=== PATIENT | female | born 1970 | race Caucasian/White ===

== ENCOUNTER 2016-04-02 09:43 | Emergency (ER) | payer OTHER ==
[~2016-04-02] VITALS: Ht 160 cm; Wt 96.1 kg
[~2016-04-02 09:43] MED LIST: GABA600T PO; LISI2.5T3 PO; METH40TA9 PO; NEUR600T PO
[2016-04-02 09:48] VITALS: BP 154/99; PULSE 86; RESP 18; TEMP 98.4; O2SAT 97
--- NOTE | 2016-04-02 10:06 | PD ---
HPI Chief Complaint: Musculoskeletal Complaint Time Seen by Provider: 09:59 Travel History International Travel<30 days: No Contact w/Intl Traveler<30days: No Traveled to known affect area: No History of Present Illness HPI The patient was seen and examined in the presence of the nurse. This patient complains of left knee pain. 6 days ago she tripped and fell and landed on it. She is ambulatory but has pain when walking. There is some bruising there. Severity of symptoms is mild to moderate. No alleviating factors PFSH Past Medical History Hx Anticoagulant Therapy: No Arthritis: Yes (RHEUMATOID ) Bipolar Disorder: Yes Cardiovascular Problems: Yes (HTN) Chemotherapy: No Cerebrovascular Accident: Yes (TIA 2009) Diabetes: No Diminished Hearing: No Gastrointestinal Disorders: Yes GERD: Yes Herniated Disk: Yes Hypertension: Yes Musculoskeletal: Yes (CHRONIC BACK PAIN) Neurologic: Yes Respiratory: No Immunizations Current: Yes Seizures: Yes Ulcer: Yes (GASTRIC) ?: Not LMP: 2001 - PARTIAL HYSTO : 3 Para: 3 Tubal Ligation: Yes Past Surgical History Hysterectomy: Yes Social History Alcohol Use: No Tobacco Use: Yes (1 ppd) Substance Use: No Allergies-Medications (Allergen,Severity, Reaction): Coded Allergies: Celebrex (Verified Allergy, Severe, INCREASED HEART RATE, 04/02/16) Codeine (Verified Allergy, Severe, CAN'T URINATE, 04/02/16) Nonsteroidal Anti-Inflammatory Agts (Verified Allergy, Severe, GI BLEEDS, 04/02/16) Reported Meds & Prescriptions Reported Meds & Active Scripts Active Reported Gabapentin 600 Mg Tab 600 Mg PO 5 TIMES A DAY Lisinopril-Hctz 20-12.5 Mg Tab 1 Tab PO DAILY Methadone (Methadone HCl) 10 Mg Tab 170 Mg PO DAILY Review of Systems General / Constitutional: No: Fever HENT: No: Headaches Cardiovascular: No: Chest Pain or Discomfort Physical Exam Narrative SKIN: Inspection shows no rash or ulcers. Palpation shows no induration or nodules. Psych: Normal mood and affect. Normal insight and judgment. Left knee: Old ecchymosis over the patella. Mild tenderness there decent range of motion. No obvious instability Data Data Last Documented VS Vital Signs Date Time Temp Pulse Resp B/P Pulse Ox O2 Delivery O2 Flow Rate FiO2 04/02/16 09:48 98.4 86 18 154/99 97 Orders Knee, Complete (4vws) (1/14/17 ) [facility] Medical Decision Making Medical Screen Exam Complete: Yes Emergency Medical Condition: Yes Medical Record Reviewed: Yes Differential Diagnosis Contusion, soft tissue injury, fracture Narrative Course I have reviewed the patient's electronic medical record. I reviewed her left knee x-rays which show effusion but no fracture or dislocation Supportive care discussed including limit weightbearing and ice and elevate and use crutches if it's painful to bear weight. Recommend orthopedic follow-up as she reports no improvement in a week She has been walking on it for the last week Recommend she get a neoprene sleeve for added stability Patient has chronic back pain and takes pain medicine through pain clinic so I' m not writing additional pain medicine now Diagnosis Primary Impression: Soft tissue injury of left knee Additional Instructions: The patient was advised to follow up with orthopedist. Ice and elevate and limit weightbearing Use a neoprene sleeve on the left knee Use crutches if it's painful to bear weight Med/Other Pt SpecificInfo: Other Disposition: 01 DISCHARGE HOME Condition: Stable Brodie Rosales MD Apr 02, 2016 10:06
[2016-04-02] MEDS ORDERED: GABA600T PO (10:07)
[2016-04-02] MEDS ORDERED: METH10TA PO (10:07)
[2016-04-02] MEDS ORDERED: LISI20TA PO (10:07)
--- NOTE | 2016-04-02 10:38 | RADHPO ---
EXAM DATE/TIME: 04/02/2016 10:14 [facility] COMPARISON: No previous studies available for comparison. INDICATIONS : Fell, has left knee pain MEDICAL HISTORY : None. SURGICAL HISTORY : None. ENCOUNTER: Initial ACUITY: 1 week PAIN SCORE: 5/10 LOCATION: Left knee FINDINGS: Four view examination of the left knee demonstrates no evidence of fracture or dislocation. Moderate joint effusion. Bony mineralization is normal. The articular surfaces are intact. The suprapatell ar soft tissues have a normal configuration. CONCLUSION: Unremarkable examination of the left knee except for moderate joint effusion. Kosta Reid MD on April 02, 2016 at 10:36 Board Certified Radiologist. This report was verified electronically.
== END 2016-04-02 10:51 | disposition home or self-care (01) ==
LOC: PHED 09:43
DX: S89.92XA Unspecified injury of left lower leg, initial encounter (principal); M06.9 Rheumatoid arthritis, unspecified; I10 Essential (primary) hypertension; Z86.73 Personal history of transient ischemic attack (TIA), and cerebral infarction without residual deficits; F17.210 Nicotine dependence, cigarettes, uncomplicated; M54.9 Dorsalgia, unspecified; W01.0XXA Fall on same level from slipping, tripping and stumbling without subsequent striking against object, initial encounter; Y93.9 Activity, unspecified; Y92.9 Unspecified place or not applicable; Y99.9 Unspecified external cause status
CPT/HCPCS: 73564; 99283

== ENCOUNTER 2017-08-15 14:35 | Emergency (ER) | payer SELFPAY ==
[~2017-08-15] VITALS: Ht 160 cm; Wt 80.0 kg
[~2017-08-15 14:35] MED LIST changes: -LISI2.5T3 PO; +LISI20TA PO; +METH10TA PO; -METH40TA9 PO; -NEUR600T PO
[2017-08-15 14:41] VITALS: BP 146/88; PULSE 117; RESP 18; TEMP 98.5; O2SAT 97
[2017-08-15] MEDS ORDERED: METHADONE PO (14:49)
[2017-08-15] MEDS ORDERED: cloNIDine HCL 0.1 MG/24 HR PATCH T-DERMAL ONE (15:00)
[2017-08-15] MEDS ORDERED: SODIUM CHLORIDE 0.9% FLUSH 10 ML FLUSH IVF PRN (15:00)
[2017-08-15] MEDS ORDERED: ONDANSETRON ODT 4 MG TAB PO ONE (15:00)
[2017-08-15 15:40] VITALS: BP 149/88; PULSE 96; RESP 16; O2SAT 97
[2017-08-15 15:56] LABS: AUTOMATED NEUTROPHIL # 5.4 TH/MM3 (1.8-7.7); BASOPHIL % 0.5 % (0.0-2.0); EOSINOPHIL # 0.1 TH/MM3 (0-0.4); EOSINOPHIL % 1.3 % (0.0-4.0); LYMPH % 21.6 % (9.0-44.0); LYMPHOCYTE # 1.6 TH/MM3 (1.0-4.8); MEAN CELL VOLUME 86.5 FL (80.0-100.0); MEAN CORPUSCULAR HEMOGLOBIN 28.8 PG (27.0-34.0); MEAN CORPUSCULAR HGB CONC 33.3 % (32.0-36.0); MEAN PLATELET VOLUME 8.8 FL (7.0-11.0); MONO % 3.6 % (0.0-8.0); MONOCYTE # 0.3 TH/MM3 (0-0.9); PLATELET COUNT 232 TH/MM3 (150-450); RED BLOOD COUNT 4.51 MIL/MM3 (4.00-5.30); RED CELL DISTRIBUTION WIDTH 14.6 % (11.6-17.2); WHITE BLOOD COUNT 7.5 TH/MM3 (4.0-11.0)
--- NOTE | 2017-08-15 15:56 | RADRPT ---
EXAM DATE: 08/15/2017 3:41 PM EDT AGE/SEX: 47 years / Female INDICATIONS: Chest pain and left arm pain started today CLINICAL DATA: This is the patient's initial encounter. Patient reports that signs and symptoms have been present for 1 day and indicates a pain score of 6/10. MEDICAL/SURGICAL HISTORY: Stroke. Cardiovascular disease. Arthritis. gastric ulcer Hysterec arnoldo. shoulder surgery COMPARISON: No prior [facility] exams available for comparison. FINDINGS: The heart and mediastinal contours are within normal limits. There are chronic appearing interstitial changes throughout the pulmonary parenchyma. No pneumothorax is seen. The visualized osseous structu res are grossly intact. CONCLUSION: Chronic appearing interstitial changes. No acute abnormality identified. Electronically signed by: Davis Lim MD 08/15/2017 3:55 PM EDT
[2017-08-15 16:24] LABS: ALBUMIN 3.2 GM/DL (3.4-5.0); AST (GOT) 23 U/L (15-37); BICARBONATE 24.2 MEQ/L (21.0-32.0); BLOOD UREA NITROGEN 8 MG/DL (7-18); CALCIUM 8.6 MG/DL (8.5-10.1); CHLORIDE 109 MEQ/L (98-107); CREATININE 0.91 MG/DL (0.50-1.00); GLOMERULAR FILTRATION RATE 67 ML/MIN (>89); GLUCOSE,RANDOM 129 MG/DL (74-106); SODIUM (NA) 144 MEQ/L (136-145)
[2017-08-15 16:29] LABS: ALKALINE PHOSPHATASE 115 U/L (45-117); ALT (GPT) 37 U/L (10-53); TOTAL BILIRUBIN ADULT 0.2 MG/DL (0.2-1.0); TOTAL PROTEIN 7.2 GM/DL (6.4-8.2); TROPONIN I LESS THAN 0.02 NG/ML (0.02-0.05)
[2017-08-15] MEDS ORDERED: CYCL5TAB PO (16:43)
[2017-08-15] MEDS ORDERED: ONDA4TAB7 SL (16:43)
--- NOTE | 2017-08-15 16:43 | PD ---
HPI Chief Complaint: Chest Pain Time Seen by Provider: 14:41 Travel History International Travel<30 days: No Contact w/Intl Traveler<30days: No Traveled to known affect area: No History of Present Illness HPI Is a 47-year-old woman presents emergency department complaining of chest pain. She states that a couple days ago started getting around without may be related to her medications so she stopped all of them including methadone, 150 mg daily, lisinopril HCTZ, and this was 2 days ago she had her last dose of methadone. Today she started feeling sick, flush with palpitations, some chest heaviness, left arm pain, as well as associated nausea. Symptoms she otherwise had been feeling generally well and healthy. Denies any other new or worsening symptoms. History Past Medical History Narrative Medical Rheumatoid arthritis Hypertension Bipolar disorder TIA Chronic back pain On chronic methadone : 3 Para: 3 Social History Alcohol Use: No Tobacco Use: Yes (1 ppd) Allergies-Medications (Allergen,Severity, Reaction): Coded Allergies: celecoxib (Unverified Allergy, Severe, INCREASED HEART RATE, 08/15/17) codeine (Unverified Allergy, Severe, CAN'T URINATE, 08/15/17) diclofenac (Unverified Allergy, Severe, GI BLEEDS, 08/15/17) etodolac (Unverified Allergy, Severe, GI BLEEDS, 08/15/17) flurbiprofen (Unverified Allergy, Severe, GI BLEEDS, 08/15/17) ibuprofen (Unverified Allergy, Severe, GI BLEEDS, 08/15/17) indomethacin (Unverified Allergy, Severe, GI BLEEDS, 08/15/17) ketoprofen (Unverified Allergy, Severe, GI BLEEDS, 08/15/17) ketorolac (Unverified Allergy, Severe, GI BLEEDS, 08/15/17) naproxen (Unverified Allergy, Severe, GI BLEEDS, 08/15/17) oxaprozin (Unverified Allergy, Severe, GI BLEEDS, 08/15/17) Reported Meds & Prescriptions Reported Meds & Active Scripts Active Reported [Methadone] 150 Mg PO DAILY Gabapentin 600 Mg Tab 600 Mg PO 5 TIMES A DAY Lisinopril-Hctz 20-12.5 Mg Tab 1 Tab PO DAILY Review of Systems Except as stated in HPI: all other systems reviewed are Neg Physical Exam Narrative GENERAL: Well-appearing 47-year-old woman, no acute distress. SKIN: Focused skin assessment warm/dry. HEAD: Atraumatic. Normocephalic. EYES: Pupils equal and round. No scleral icterus. No injection or drainage. ENT: No nasal bleeding or discharge. Mucous membranes pink and moist. NECK: Trachea midline. No JVD. CARDIOVASCULAR: Regular rate and rhythm. No murmur appreciated. RESPIRATORY: No accessory muscle use. Clear to auscultation. Breath sounds equal bilaterally. GASTROINTESTINAL: Abdomen soft, non-tender, nondistended. Hepatic and splenic margins not palpable. MUSCULOSKELETAL: No obvious deformities. No clubbing. No cyanosis. No edema. NEUROLOGICAL: Awake and alert. No obvious cranial nerve deficits. Motor grossly within normal limits. Normal speech. PSYCHIATRIC: Appropriate mood and affect; insight and judgment normal. Data Data Last Documented VS Vital Signs Date Time Temp Pulse Resp B/P (MAP) Pulse Ox O2 Delivery O2 Flow Rate FiO2 08/15/17 15:40 96 16 149/88 (108) 97 Room Air 08/15/17 14:41 98.5 Orders Orders Electrocardiogram (08/15/17 14:56) Complete Blood Count With Diff (08/15/17 14:56) Comprehensive Metabolic Panel (08/15/17 14:56) Troponin I (08/15/17 14:56) Ecg Monitoring (08/15/17 14:56) Iv Access Insert/Monitor (08/15/17 14:56) Oximetry (08/15/17 14:56) Oxygen Administration (08/15/17 14:56) Sodium Chloride 0.9% Flush (Ns Flush) (08/15/17 15:00) Chest, Pa & Lat (08/15/17 14:56) Ondansetron Odt (Zofran Odt) (08/15/17 15:00) Clonidine 0.1 Mg Patch.7d (Catapres-Tts (08/15/17 15:00) Labs Laboratory Tests Test 08/15/17 15:02 White Blood Count 7.5 TH/MM3 Red Blood Count 4.51 MIL/MM3 Hemoglobin 13.0 GM/DL Hematocrit 39.0 % Mean Corpuscular Volume 86.5 FL Mean Corpuscular Hemoglobin 28.8 PG Mean Corpuscular Hemoglobin Concent 33.3 % Red Cell Distribution Width 14.6 % Platelet Count 232 TH/MM3 Mean Platelet Volume 8.8 FL Neutrophils (%) (Auto) 73.0 % Lymphocytes (%) (Auto) 21.6 % Monocytes (%) (Auto) 3.6 % Eosinophils (%) (Auto) 1.3 % Basophils (%) (Auto) 0.5 % Neutrophils # (Auto) 5.4 TH/MM3 Lymphocytes # (Auto) 1.6 TH/MM3 Monocytes # (Auto) 0.3 TH/MM3 Eosinophils # (Auto) 0.1 TH/MM3 Basophils # (Auto) 0.0 TH/MM3 CBC Comment DIFF FINAL Differential Comment Blood Urea Nitrogen 8 MG/DL Creatinine 0.91 MG/DL Random Glucose 129 MG/DL Total Protein 7.2 GM/DL Albumin 3.2 GM/DL Calcium Level 8.6 MG/DL Alkaline Phosphatase 115 U/L Aspartate Amino Transf (AST/SGOT) 23 U/L Alanine Aminotransferase (ALT/SGPT) 37 U/L Total Bilirubin 0.2 MG/DL Sodium Level 144 MEQ/L Potassium Level 3.6 MEQ/L Chloride Level 109 MEQ/L Carbon Dioxide Level 24.2 MEQ/L Anion Gap 11 MEQ/L Estimat Glomerular Filtration Rate 67 ML/MIN Troponin I LESS THAN 0.02 NG/ML MDM Medical Decision Making Medical Screen Exam Complete: Yes Emergency Medical Condition: Yes Interpretation(s) Review of EKG: Sinus tachycardia rate 102, normal axis, normal intervals, no acute ischemia. LABS: CBC is unremarkable CMP unremarkable Troponins negative Chest x-ray: Chronic appearing interstitial changes. No acute abnormal Differential Diagnosis Opioid withdrawal, chest pain, PE, weakness, pericarditis, other Narrative Course Medical decision making 47-year-old woman presents to the emergency department with what appears to be opioid withdrawal symptoms after stopping her methadone. Symptoms are varied and do include chest pain. Feels well. EKG does not show any definite ischemic changes, some nonspecific changes. Feels much improved with the clonidine. Will recommend supportive treatment, outpatient follow-up. Diagnosis Primary Impression: Opioid withdrawal Additional Impression: Chest pain Additional Instructions: Take Zofran as needed for nausea or vomiting. Take Flexeril if needed for muscle spasms and aches. Keep clonidine patch on for 3-7 days. If he started to experience lightheadedness dizziness fainting spells, remove patch. If he started methadone back remove the patch. Return to the emergency department for any new or worsening symptoms. Med/Other Pt SpecificInfo: Prescription(s) given Scripts Cyclobenzaprine (Flexeril) 5 Mg Tab 5 MG PO TID for Muscle Spasm, #20 TAB 0 Refills Prov: Kosta Garner MD 08/15/17 Ondansetron Odt (Ondansetron Odt) 4 Mg Tab 4 MG SL Q8HR Y for Nausea/Vomiting, #15 TAB 0 Refills Prov: Kosta Garner MD 08/15/17 Disposition: 01 DISCHARGE HOME Condition: Stable Kosta Garner MD August 15, 2017 16:43
[2017-08-16] MEDS ORDERED: METH10TA PO (10:31)
--- NOTE | 2017-08-16 14:18 | EKG ---
Date Performed: 08/15/2017 Time Performed: 14:47:00 PTAGE: 47 years EKG: SINUS TACHYCARDIA NONSPECIFIC ST & T-WAVE ABNORMALITY ABNORMAL ECG PREVIOUS TRACING : 01/22/2015 09.56 DOCTOR: Kosta Rose Interpretating Date/Time 08/18/2017 07:43:11
== END 2017-08-15 17:05 | disposition home or self-care (01) ==
LOC: NEPC 14:35
DX: F11.23 Opioid dependence with withdrawal (principal); R07.9 Chest pain, unspecified; I10 Essential (primary) hypertension; F17.200 Nicotine dependence, unspecified, uncomplicated
CPT/HCPCS: 71046; 80053; 84484; 85025; 93005

== ENCOUNTER 2017-08-22 08:41 | Emergency (ER) | payer SELFPAY ==
[~2017-08-22 08:41] MED LIST changes: +CYCL5TAB PO; +ONDA4TAB7 SL
[2017-08-22 08:45] VITALS: BP 167/79; PULSE 75; RESP 16; TEMP 98.7; O2SAT 97
[2017-08-22] MEDS ORDERED: TRIA0.5O TOPICAL (09:26)
--- NOTE | 2017-08-22 09:34 | PD ---
HPI Chief Complaint: Skin Problem Time Seen by Provider: 09:21 Travel History International Travel<30 days: No Contact w/Intl Traveler<30days: No Traveled to known affect area: No History of Present Illness HPI 47-year-old female presents emergency department with raised erythematous bumpy rash with mild itching which he states is been present for approximately 3 weeks. She denies any specific exposures. It does not itch to any great extent. She is a [id number] person as she is disabled. She denies fever, chills, or other symptoms. There is some small areas on the chest but mainly the rash is located to the dorsal medial hands. She denies pain. Patient has multiple allergies to NSAIDs. She has no other allergies. PFSH Past Medical History Hx Anticoagulant Therapy: No Arthritis: Yes (RHEUMATOID ) Bipolar Disorder: Yes Cardiovascular Problems: Yes (HTN) Chemotherapy: No Cerebrovascular Accident: Yes (TIA 2009) Diabetes: No Diminished Hearing: No Gastrointestinal Disorders: Yes GERD: Yes Herniated Disk: Yes Hypertension: Yes Musculoskeletal: Yes (CHRONIC BACK PAIN) Neurologic: Yes Respiratory: No Immunizations Current: Yes Seizures: Yes Ulcer: Yes (GASTRIC) : 3 Para: 3 Tubal Ligation: Yes Past Surgical History Hysterectomy: Yes Other Surgery: Yes (ROSIO CATARACTS) Social History Alcohol Use: No Tobacco Use: Yes (1 ppd) Substance Use: No Allergies-Medications (Allergen,Severity, Reaction): Coded Allergies: celecoxib (Unverified Allergy, Severe, INCREASED HEART RATE, 08/15/17) codeine (Unverified Allergy, Severe, CAN'T URINATE, 08/15/17) diclofenac (Unverified Allergy, Severe, GI BLEEDS, 08/15/17) etodolac (Unverified Allergy, Severe, GI BLEEDS, 08/15/17) flurbiprofen (Unverified Allergy, Severe, GI BLEEDS, 08/15/17) ibuprofen (Unverified Allergy, Severe, GI BLEEDS, 08/15/17) indomethacin (Unverified Allergy, Severe, GI BLEEDS, 08/15/17) ketoprofen (Unverified Allergy, Severe, GI BLEEDS, 08/15/17) ketorolac (Unverified Allergy, Severe, GI BLEEDS, 08/15/17) naproxen (Unverified Allergy, Severe, GI BLEEDS, 08/15/17) oxaprozin (Unverified Allergy, Severe, GI BLEEDS, 08/15/17) Reported Meds & Prescriptions Reported Meds & Active Scripts Active Triamcinolone Topical 0.5 % Oint 1 Applic TOPICAL TID Flexeril (Cyclobenzaprine HCl) 5 Mg Tab 5 Mg PO TID Ondansetron Odt 4 Mg Tab 4 Mg SL Q8HR PRN Reported Methadone (Methadone HCl) 10 Mg Tab 150 Mg PO DAILY Gabapentin 600 Mg Tab 600 Mg PO 5 TIMES A DAY Lisinopril-Hctz 20-12.5 Mg Tab 1 Tab PO DAILY Review of Systems Except as stated in HPI: all other systems reviewed are Neg General / Constitutional: No: Fever Eyes: No: Visual changes HENT: No: Headaches Cardiovascular: No: Chest Pain or Discomfort Respiratory: No: Shortness of Breath Gastrointestinal: No: Abdominal Pain Genitourinary: No: Dysuria Musculoskeletal: No: Pain Skin: Positive Rash Neurologic: No: Weakness Psychiatric: No: Depression Endocrine: No: Polydipsia Hematologic/Lymphatic: No: Easy Bruising Physical Exam Narrative GENERAL: Patient is in no acute distress. SKIN: Warm and dry. Normal color. Normal turgor. Patient has raised erythematous "bumpy" rash to both hands along the first and second webspace extending up to the wrist bilaterally. There is some other small patches on the upper anterior chest. There is no sign of cellulitis or abscess. No streaking. It appears consistent with atopic dermatitis. HEAD: Atraumatic. Normocephalic. EYES: Pupils equal and round. No scleral icterus. No injection or drainage. ENT: No nasal bleeding or discharge. Mucous membranes pink and moist. Pharynx is clear. Airways patent NECK: Trachea midline. Supple and nontender CARDIOVASCULAR: Regular rate and rhythm. RESPIRATORY: No accessory muscle use. Clear to auscultation. Breath sounds equal bilaterally. GASTROINTESTINAL: Abdomen soft, non-tender, nondistended. Hepatic and splenic margins not palpable. MUSCULOSKELETAL: Extremities without clubbing, cyanosis, or edema. No obvious deformities. NEUROLOGICAL: Awake and alert. No obvious cranial nerve deficits. Motor grossly within normal limits. Five out of 5 muscle strength in the arms and legs. Normal speech. PSYCHIATRIC: Appropriate mood and affect; insight and judgment normal. Data Data Last Documented VS Vital Signs Date Time Temp Pulse Resp B/P (MAP) Pulse Ox O2 Delivery O2 Flow Rate FiO2 08/22/17 08:45 98.7 75 16 167/79 (108) 97 MDM Medical Decision Making Medical Screen Exam Complete: Yes Emergency Medical Condition: Yes Differential Diagnosis Eczema. Rash. Atopic dermatitis. Narrative Course Patient will be treated with triamcinolone ointment 0.5% 3 times daily. She can take [id number] Benadryl as well. Patient to follow-up if symptoms worsen as needed. Diagnosis Primary Impression: Atopic dermatitis Referrals: [facility] Patient Instructions: Acute Rash (ED), General Instructions Additional Instructions: Patient will be treated with triamcinolone ointment 0.5% 3 times daily. She can take [id number] Benadryl as well. Patient to follow-up if symptoms worsen as needed. Med/Other Pt SpecificInfo: Prescription(s) given Scripts Triamcinolone Topical (Triamcinolone Topical) 0.5 % Oint 1 APPLIC TOPICAL TID for Inflammation, #15 GM 1 Refill Prov: Juliette Armstrong MD 08/22/17 Disposition: 01 DISCHARGE HOME Condition: Stable Bob Sanchez Aug 22, 2017 09:34
== END 2017-08-22 09:49 | disposition home or self-care (01) ==
LOC: NEPK 08:41
DX: L20.9 Atopic dermatitis, unspecified (principal); F31.9 Bipolar disorder, unspecified; I10 Essential (primary) hypertension; K21.9 Gastro-esophageal reflux disease without esophagitis; M06.9 Rheumatoid arthritis, unspecified; G89.29 Other chronic pain; M54.9 Dorsalgia, unspecified; F17.200 Nicotine dependence, unspecified, uncomplicated; Z86.73 Personal history of transient ischemic attack (TIA), and cerebral infarction without residual deficits
CPT/HCPCS: 99283